=== PATIENT | female | born 2000 | race African-American/Black ===

== ENCOUNTER 2022-03-28 22:13 | Observation (INO) ==
[2022-03-28] MEDS ORDERED: KETOROLAC 30 MG/ML VIAL IV STA (22:57)
[2022-03-28] MEDS ORDERED: SODIUM CHLORIDE 0.9% 1000ML 1,000 ML IV ONE (22:57)
--- NOTE | 2022-03-28 23:03 | Emergency Department Note ---
History of Present Illness General Chief complaint: Shortness of Breath/Dyspnea Stated complaint: TROUBLE BREATHING,FATIGUE,FACE NUMB, HANDS NUMB Time Seen by Provider: 03/28/22 22:46 History of Present Illness Maximum Pain Intensity: 7 21-year-old female presents emergency department with complaint of sore throat general malaise. Patient states that she had a sore throat she felt difficulty swallowing took her inhaler felt dizzy and had tingling in her hands fell and reportedly hit her head. Patient denies any loss of consciousness. Patient denies neck pain. This event occurred at 4 PM. Patient's primary complaint is sore throat. Patient's had a prior history of strep tonsillitis. Patient denies any other complaints. There are no other mitigating or alleviating factors Home Medications Medication Instructions Recorded Confirmed Type escitalopram oxalate 10 mg tablet 10 mg PO DAILY 04/20/21 03/28/22 History albuterol sulfate 90 mcg/actuation 2 puff inhalation DIRECTED PRN 03/28/22 03/28/22 History aerosol inhaler Shortness Of Breath Or Wheezing Allergies Allergy/AdvReac Type Severity Reaction Status Date / Time prednisone AdvReac Severe Shakiness Verified 03/28/22 23:17 Past Med/Surg History Social History Smoking Status: Never smoker Preferred Language: Welsh Feels Safe at Home: Yes Immunizations: History strep throat, asthma, pseudotumor cerebri Review of Systems A total of 10 systems reviewed and were otherwise negative Constitutional: + body aches; no fever Ear, Nose, Mouth, Throat: + ear pain and + sore throat Respiratory: no cough Cardiovascular: no chest pain Neurologic: + tingling Physical Exam Vital Signs Vital Signs - 24 hr 03/28/22 22:15 03/28/22 22:36 03/28/22 22:36 Temperature 36.6 C Temperature Source Temporal Artery Scan Pulse Rate 127 H Pulse Rate [Finger] 112 H Pulse Rhythm Pulse Rhythm [Finger] Pulse Strength [Finger] Respiratory Rate 18 20 Respiratory Effort / Characteristics Respiratory Depth Respiratory Pattern Blood Pressure 125/81 Blood Pressure [Right Arm] 132/70 Blood Pressure Mean 95 Blood Pressure Mean [Right Arm] 90 Blood Pressure Position [Right Arm] Pulse Oximetry 98 99 99 Oxygen Delivery Method Room Air Room Air Room Air Sepsis Recent Fever Within 48 Hours No Sepsis New/Unexplained Change in Mental Status No Sepsis Action Taken by Nursing No Action Required 03/28/22 23:08 03/29/22 01:05 03/29/22 03:00 Temperature Temperature Source Pulse Rate 109 H 89 Pulse Rate [Finger] 107 H Pulse Rhythm Regular Pulse Rhythm [Finger] Regular Pulse Strength [Finger] Normal Respiratory Rate 20 20 18 Respiratory Effort / Characteristics Non-Labored Spontaneous Respiratory Depth Normal Respiratory Pattern Regular Blood Pressure 122/57 L Blood Pressure [Right Arm] 138/69 Blood Pressure Mean 78 Blood Pressure Mean [Right Arm] 92 Blood Pressure Position [Right Arm] Semi-fowlers Pulse Oximetry 99 98 95 Oxygen Delivery Method Room Air Room Air Room Air Sepsis Recent Fever Within 48 Hours Sepsis New/Unexplained Change in Mental Status Sepsis Action Taken by Nursing GENERAL: Patient is awake alert in no acute distress however she is hyperventilating EYES: The conjunctivae are clear. The pupils are round and reactive. EARS, NOSE, MOUTH AND THROAT: The nose is without any evidence of any deformity. Mucous membranes are moist. Tongue is midline. There is throat swelling with greenish exudate on the tonsils the uvula is midline there is no trismus NECK: The neck is nontender and supple. Nontender anterior cervical nodes palpated RESPIRATORY: Hyperventilating but not in any respiratory distress speaking in full sentences lungs are clear CARDIOVASCULAR: Tachycardic noted there no murmurs rubs or gallops normal S1 normal S2. GASTROINTESTINAL: The abdomen is soft. Abdomen is nontender. Splenomegaly BACK: No midline tenderness or or step-off noted range of motion in flexion extension as well as rotation no signs of muscle spasm noted MUSCULOSKELETAL/EXTREMITIES: There is no evidence of gross deformity full range of motion is noted in the hips and shoulders. SKIN: There is no obvious evidence of any rash. There are no petechiae, pallor or cyanosis noted. NEUROLOGIC: Patient is awake alert and oriented x3 strength is symmetric PSYCH: Anxious Course Reevaluation(s) Reevaluation #1: Patient after IV fluids and Toradol states that she feels slightly improved. Patient remains tachycardic patient has been given approximately 600 mL of saline. Patient is swallowing without any difficulty airway is intact phonating without difficulty. Time: 00:53 Reevaluation #2: Patient remained tachycardic was given IV penicillin, IV Decadron. Did have some improvement however concern for SIRS with elevated white blood cell count tachycardia and fever. Case was discussed with the [facility] hospitalist for admission Time: 03:48 Consultations Consultation #1: [facility] hospitalist for admission Time: 02:30 Administered Medications Discontinued Medications Dexamethasone Sodium Phosphate (DexamethasonePf 10 Mg/Ml Vial) 10 mg IV NOW ONE Stop: 03/29/22 00:48 Last Admin: 03/29/22 01:07 Dose: 10 mg Documented By: FANNY Sodium Chloride (Nss 1000ml) 1,000 mls @ 999 mls/hr IV .Q1H1M ONE Stop: 03/28/22 23:57 Last Infusion: 03/29/22 00:33 Dose: 0 mls/hr Documented By: Admin: 03/28/22 23:10 Dose: 999 mls/hr Documented By: FANNY Penicillin G Potassium 2 mu/ (Dextrose) 104 mls @ 100 mls/hr IV NOW STA; Protocol Stop: 03/29/22 01:33 Last Infusion: 03/29/22 03:19 Dose: 0 mls/hr Documented By: Admin: 03/29/22 01:32 Dose: 100 mls/hr Documented By: FANNY Acetaminophen (Ofirmev) 1,000 mg in 100 mls @ 400 mls/hr IV NOW STA Stop: 03/29/22 01:01 Last Infusion: 03/29/22 01:28 Dose: 0 mls/hr Documented By: Admin: 03/29/22 01:11 Dose: 400 mls/hr Documented By: FANNY Ioversol (Optiray 350 100ml) 87 ml IV ONCE ONE Stop: 03/28/22 23:54 Last Admin: 03/28/22 23:53 Dose: 87 ml Documented By: CHON Ketorolac Tromethamine (Ketorolac 30 Mg/Ml Vial) 30 mg IV NOW STA Stop: 03/28/22 22:58 Last Admin: 03/28/22 23:11 Dose: 30 mg Documented By: FANNY Medical Decision Making Medical Records Attestation: I reviewed the patient's medical records. Home Medications Current Medication List: was personally reviewed by me Laboratory Data Attestation: I reviewed the patient's lab results. Leukocytosis is present, hypokalemia is present Result diagrams: 03/28/22 22:43 03/28/22 22:43 Lab Results 03/28/22 03/28/22 03/28/22 Range/Units 22:43 22:43 22:43 WBC 27.92 H (4.8-10.8) K/ul RBC 4.29 (3.93-5.22) M/uL Hgb 11.7 L (12.0-16.0) g/dl Hct 34.8 (34.1-44.9) % MCV 81.1 (80.0-100.0) fL MCH 27.3 (25.0-34.0) pg MCHC 33.6 (32.0-36.0) g/dL RDW Std Deviation 38.2 (36.4-46.3) fL RDW Coeff of Dayna 13.2 (11.5-14.5) % Plt Count 310 (130-400) K/uL MPV 10.0 (9.4-12.3) fL Immature Gran % (Auto) 1.4 % Neut % (Auto) 86.8 % Lymph % (Auto) 3.3 % Boundary % (Auto) 8.3 % Eos % (Auto) 0.0 % Baso % (Auto) 0.2 % Neut # (Auto) 24.22 H (1.4-6.5) K/uL Lymph # (Auto) 0.93 L (1.2-3.4) K/uL Boundary # (Auto) 2.31 H (0.24-0.82) K/uL Eos # (Auto) 0.00 (0-0.50) K/uL Baso # (Auto) 0.06 (0-0.2) K/uL Immature Gran # (Auto) 0.40 H (0.00-0.02) K/uL Sodium 131 L (136-145) mmol/L Potassium 3.1 L (3.5-5.1) mmol/L Chloride 98 (98-107) mmol/L Carbon Dioxide 23 (21-32) mmol/L Anion Gap 10 (3-11) BUN 6 (6-23) mg/dl Creatinine 0.79 (0.6-1.2) mg/dl Est Cr Clr Drug Dosing 129.2 ml/min Est GFR ( Amer) 124.0 ml/min Est GFR (Non-Af Amer) 107.0 ml/min BUN/Creatinine Ratio 7.6 L (10-20) Glucose 133 H (70-99(Fasting)) mg/dl Lactate (0.4-2.0) mmol/L Calcium 9.1 (8.5-10.1) mg/dl Total Bilirubin 0.9 (0.2-1.0) mg/dl AST 36 (13-39) U/L ALT 30 (7-52) U/L Alkaline Phosphatase 48 (34-104) U/L Total Protein 7.4 (6.0-8.3) gm/dl Albumin 4.2 (3.4-5.0) gm/dl Globulin 3.2 (2.5-4.0) gm/dl Albumin/Globulin Ratio 1.3 (0.9-2) Monoscreen Negative (Negative) Group A Strep (PCR) (NotDetected) 03/28/22 03/29/22 Range/Units 23:05 00:47 WBC (4.8-10.8) K/ul RBC (3.93-5.22) M/uL Hgb (12.0-16.0) g/dl Hct (34.1-44.9) % MCV (80.0-100.0) fL MCH (25.0-34.0) pg MCHC (32.0-36.0) g/dL RDW Std Deviation (36.4-46.3) fL RDW Coeff of Dayna (11.5-14.5) % Plt Count (130-400) K/uL MPV (9.4-12.3) fL Immature Gran % (Auto) % Neut % (Auto) % Lymph % (Auto) % Boundary % (Auto) % Eos % (Auto) % Baso % (Auto) % Neut # (Auto) (1.4-6.5) K/uL Lymph # (Auto) (1.2-3.4) K/uL Boundary # (Auto) (0.24-0.82) K/uL Eos # (Auto) (0-0.50) K/uL Baso # (Auto) (0-0.2) K/uL Immature Gran # (Auto) (0.00-0.02) K/uL Sodium (136-145) mmol/L Potassium (3.5-5.1) mmol/L Chloride (98-107) mmol/L Carbon Dioxide (21-32) mmol/L Anion Gap (3-11) BUN (6-23) mg/dl Creatinine (0.6-1.2) mg/dl Est Cr Clr Drug Dosing ml/min Est GFR ( Amer) ml/min Est GFR (Non-Af Amer) ml/min BUN/Creatinine Ratio (10-20) Glucose (70-99(Fasting)) mg/dl Lactate 0.9 (0.4-2.0) mmol/L Calcium (8.5-10.1) mg/dl Total Bilirubin (0.2-1.0) mg/dl AST (13-39) U/L ALT (7-52) U/L Alkaline Phosphatase (34-104) U/L Total Protein (6.0-8.3) gm/dl Albumin (3.4-5.0) gm/dl Globulin (2.5-4.0) gm/dl Albumin/Globulin Ratio (0.9-2) Monoscreen (Negative) Group A Strep (PCR) NOT DETECTED (NotDetected) Imaging Data Radiologist's Impression: CT of the neck per radiology states diffuse nasopharyngeal edema and soft tissue swelling with bilateral tonsillar saturation and edema consistent with tonsillitis versus pharyngitis. No discrete abscess identified. Right greater than left lymphadenopathy greatest in the right jugular digastric region 1.5 x 2 cm. Multiple right greater than left posterior triangle lymph nodes. Normal- sized thyroid gland with scattered bilateral cysts/ nodules ECG Data Additional Comments: Telemetry interpreted by me sinus tachycardia rate of 127 MDM Narrative Medical decision making differential diagnosis strep pharyngitis, tonsillitis, viral syndrome, mono, early abscess. Plan is to check labs, CT neck, give IV fluids, Toradol, observe Impression & Plan Acute tonsillitis, SIRS (systemic inflammatory response syndrome) Discharge Plan Visit Data Chief Complaint: Shortness of Breath/Dyspnea Stated Complaint: TROUBLE BREATHING,FATIGUE,FACE NUMB, HANDS NUMB ED Provider: Handy Villar Discharge Problem: Acute tonsillitis, SIRS (systemic inflammatory response syndrome) Patient Disposition: Being Evaluated by Hospitalist Forms Stand Alone Forms: My [facility] [employer] Prescriptions Prescriptions: No Action escitalopram oxalate 10 mg tablet 10 mg PO DAILY albuterol sulfate 90 mcg/actuation Hfa Aerosol Inhaler 2 puff INHALATION DIRECTED PRN (Reason: Shortness Of Breath Or Wheezing) Referrals Referrals: PCP,NO [Primary Care Provider] -
[2022-03-28 23:10] LABS: Hematocrit (blood only) 34.8 % (34.1-44.9); Hemoglobin 11.7 g/dl (12.0-16.0); Mean Corpuscular Hemoglobin 27.3 pg (25.0-34.0); Mean Corpuscular Hgb Conc 33.6 g/dL (32.0-36.0); Mean Corpuscular Volume 81.1 fL (80.0-100.0); Platelet Count 310 K/uL (130-400); RDW Coefficient of Variation 13.2 % (11.5-14.5); RDW Standard Deviation 38.2 fL (36.4-46.3); Red Blood Count 4.29 M/uL (3.93-5.22); White Blood Count 27.92 K/ul (4.8-10.8)
[2022-03-28 23:31] LABS: Albumin Globulin Ratio 1.3 (0.9-2); Albumin Level 4.2 gm/dl (3.4-5.0); BUN Creatinine Ratio 7.6 (10-20); Bilirubin,Total 0.9 mg/dl (0.2-1.0); Calcium 9.1 mg/dl (8.5-10.1); Creatinine Clr Calc Pharmacy 129.2 ml/min; Globulin 3.2 gm/dl (2.5-4.0); Potassium 3.1 mmol/L (3.5-5.1); Total Protein 7.4 gm/dl (6.0-8.3)
[2022-03-28 23:33] LABS: Basophils # (auto) 0.06 K/uL (0-0.2); Basophils % (auto) 0.2 %; Immature Granulocytes % (auto) 1.4 %; Lymphocytes # (auto) 0.93 K/uL (1.2-3.4); Lymphocytes % (auto) 3.3 %; Monocytes # (auto) 2.31 K/uL (0.24-0.82); Monocytes % (auto) 8.3 %; Neutrophils # (auto) 24.22 K/uL (1.4-6.5); Neutrophils % (auto) 86.8 %
[2022-03-28] MEDS ORDERED: OPTIRAY 350 100ml IV ONE (23:53)
[2022-03-29] MEDS ORDERED: PENICILLIN G POTASSIUM 2 MU in DEXTROSE 5% 100 ML IV STA (00:31)
[2022-03-29] MEDS ORDERED: ACETAMINOPHEN 1,000 MG/100 ML VIAL IV STA (00:47)
[2022-03-29] MEDS ORDERED: dexAMETHasone**PF** 10 MG/ML VIAL IV ONE (00:47)
--- NOTE | 2022-03-29 02:29 | History & Physical Report ---
Date of Service March 29, 2022 Assessment & Plan (1) Acute tonsillitis: Plan: 21yo female with a history of strep pharyngitis, asthma, pseudotumor cerebri, and anxiety presents after a fall as well as a two-day history of sore throat, SOB, and hand/face numbness, nausea, congestion, and ear pain. Sore throat, SOB, nausea, congestion, ear pain Suspect symptoms are secondary to tonsillitis/pharyngitis CT neck: diffuse nasopharyngeal edema and soft tissue welling with bilateral tonsillar edema consistent with tonsillitis vs pharyngitis; no abscess identified; lymphadenopathy noted Group A strep PCR negative, monoscreen negative Patient received penicillin G in ED Augmentin 875-125mg bid LR @ 100mL/hr (x1 bag ordered) Flonase ordered Trend CBC, BMP Dizziness, fall, head trauma Patient fell earlier in the day when taking a puff of her albuterol inhaler CT head ordered Suspect orthostatic hypotension given poor appetite and poor PO intake Asthma: continue home regimen Anxiety: continue home lexapro FEN: regular diet, LR @ 100mL/hr (x1 bag ordered) Code status: full code DVT ppx: SCDs Dispo: med/surg History of Present Illness Primary Care Provider: NO PCP 21yo female with a history of strep pharyngitis, asthma, pseudotumor cerebri, and anxiety presents after a fall as well as a two-day history of sore throat, SOB, and hand/face numbness, nausea, congestion, and ear pain. Symptoms began around 4pm on 03/28/22.Patient tried to use her albuterol inhaler before becoming lightheaded and falling, hitting her head. Patient endorses mild forehead pain. Patient denies headache, vision changes, CP, palpitations, edema, abdominal pain, vomiting, dysuria, hematochezia, melena, back pain, or other symptoms. Denies recent illness but does endorse low appetite over the past few days. Upon arrival, vitals were notable for tachycardia (100-120s); BP not elevated, no tachypnea, patient afebrile, spO2 adequate on room air. Initial labs were notable for leukocytosis (27.9), mild hyponatremia (131), and mild hypokalemia (3.1);platelets wnl, no electrolyte abnormalities, creatinine not elevated, LFTs wnl, Tbili not elevated, mono screen negative, group A strep PCR negative. CT neck: diffuse nasopharyngeal edema and soft tissue welling with bilateral tonsillar edema consistent with tonsillitis vs pharyngitis; no abscess identified; lymphadenopathy noted In the ED, patient received an NSS 1L bolus (x1), dexamethasone 10mg IV (x1), toradol 30mg IV (x1), penicillin G, and APAP 1000mg IV (x1). Surrogate decision-maker in case of an emergency: mother Autumn Najera (cell: [phone]) Allergies Allergy/AdvReac Type Severity Reaction Status Date / Time prednisone AdvReac Severe Shakiness Verified 03/28/22 23:17 Home Medications Medication Instructions Recorded Confirmed Type escitalopram oxalate 10 mg tablet 10 mg PO DAILY 04/20/21 03/28/22 History albuterol sulfate 90 mcg/actuation 2 puff inhalation DIRECTED PRN 03/28/22 1 05/28/21 History aerosol inhaler Shortness Of Breath Or Wheezing amoxicillin 250 mg-potassium 17.5 ml PO BID 10 days #350 mL 03/29/22 Rx clavulanate 62.5 mg/5 mL oral suspension (Augmentin) Past Med/Surg History Social History Smoking Status: Never smoker Hx Alcohol Use: No Hx Substance Use: No Preferred Language: Cymro Communication Ability: Effective Advertising Rep Required: No Beliefs That Will Affect Care: None Current Living Situation: Other Current Living Situation Comment: Anushka (roommate). Feels Safe at Home: Yes Physical Exam Physical Exam: Constitutional: well-appearing, no acute distress HEENT: NCAT, MMM, oropharyngeal swelling noted without significant erythema, no exudate appreciated, no oral ulcers appreciated CV: regular rhythm, no murmur appreciated, extremities well-perfused, no LE edema Resp: CTABL, no wheezes/rales/rhonchi appreciated, no increased work of breathing GI: soft, nondistended, nontender, BS normoactive MSK: no gross deformities appreciated Skin: warm, dry, no rash appreciated Neuro: alert, oriented, no focal neurologic deficit appreciated Results & Data Results & Data ([facility]) Vital Signs (Past 12 Hours) Vital Signs Temp Pulse Pulse Resp BP BP Pulse Ox 03/29/22 01:05 107 H 20 138/69 98 03/28/22 23:08 109 H 20 99 03/28/22 22:36 112 H 20 132/70 99 03/28/22 22:36 99 03/28/22 22:15 36.6 C 127 H 18 125/81 98 O2 Del Method 03/29/22 01:05 Room Air 03/28/22 23:08 Room Air 03/28/22 22:36 Room Air 03/28/22 22:36 Room Air 03/28/22 22:15 Room Air Supervising Physician Co-Signing Physician Notes Attending addendum: I have physically seen this patient, have supervised the medical residents activities, and agree with the H&P unless as otherwise noted. Assessment and Plan: Acute exudative tonsillitis- CT neck with diffuse nasopharyngeal edema and soft tissue swelling with bilateral tonsillar edema consistent with tonsillitis pharyngitis. No abscess noted Group A strep PCR negative Monoscreen negative Status post penicillin G IV in the ED IV fluids as noted Ceftriaxone 1 g IV daily Remaining orders and notations as noted Resident Activity Tracking Resident Involvement: Resident Care Provided and Embossing Calender Operator Coverage Note Care Provided: Adult Hospital Medicine
[2022-03-29] MEDS ORDERED: ALBUTEROL HFA 8 GM INHALER INH PRN (03:17)
--- NOTE | 2022-03-29 07:46 | CT Scan Report ---
CT soft tissue neck w con HISTORY: throat pain TECHNIQUE: Multiaxial CT images of the neck were performed following the intravenous ministration of contrast and reformatted in the sagittal and coronal planes at the workstation by the radiologist. COMPARISON STUDY: None. FINDINGS: The visualized brain parenchyma and orbits are unremarkable. The pterygopalatine fossa are well-maintained. Hypertrophy and striated enhancement of the adenoid and palatine tonsils consistent with a tonsillitis. Ill-defined hypodensity within the right palatine tonsil on image 141 measuring a pproximately 1.6 x 1.5 cm. This consistent with a phlegmon/developing peritonsillar abscess. Moffat tonsillar enlargement results in moderate airway narrowing at this level. The epiglottis and prevert ebral soft tissues are normal in thickness. Subcentimeter hypodense thyroid nodules do not meet CT cr iteria for follow-up. There is an aberrant right subclavian artery noted. Mild upper cervical lymphad enopathy which is likely reactive. The major cervical vessels enhance normally. No pneumothorax. No f ractures within the visualized osseous structures. Opacified frontal sinuses with moderate mucosal th ickening within the ethmoid air cells and maxillary sinuses. The mastoid air cells are clear. Postope rative changes seen within the paranasal sinuses. There is near complete opacification of the left na vineet cavity. The parotid and submandibular glands are symmetric. IMPRESSION: 1. Hypertrophy and demonstrate enhancement of the adenoid and palatine tonsils consistent with a tons illitis. 2. Ill-defined hypodensity within the right palatine tonsil measuring 1.6 x 1.5 cm. This is consisten t with a phlegmon/developing peritonsillar abscess. 3. Moffat tonsillar enlargement results in moderate airway narrowing at this level. 4. This report was called/faxed to the emergency department following dictation. ACT 112: Negative or not required by law. Electronically signed by: Jung Waite M.D. 03/29/2022 7:45 AM
--- NOTE | 2022-03-29 07:55 | CT Scan Report ---
CT head/brain wo con CLINICAL HISTORY: syncope with head trauma Technique: Contiguous axial CT images of the head were acquired from the base of the skull to the dima yisel without intravenous contrast administration. Images were viewed in brain, [facility]. Automated dose lowering techniques and/or adjustment according to patient size were utilized for this exam. Comparison: Comparison is made to CT head 04/20/2021 Findings: The ventricles, basal cisterns, and cerebral sulci are normal. There is no acute intracranial hemorrh age or evidence of acute territorial infarction. Neither mass effect, shift of the midline structures , nor abnormal extra-axial fluid collections are shown. Sinus disease is seen in the frontal and to a lesser extent the ethmoid sinuses. There is apparent et hmoid surgery. The orbits appear normal. There are no acute fractures of the calvaria or scalp swell ing. Impression: No acute intracranial hemorrhage, no evidence of acute territorial infarction or other acute intracra nial disease process. Sinus disease is seen. ACT 112: Negative or not required by law. Electronically signed by: Zelalem Iniguez M.D. 03/29/2022 7:54 AM
[2022-03-29] MEDS ORDERED: ONDANSETRON INJ 2 MG/ML 2 ML VIAL IV PRN (08:10)
[2022-03-29] MEDS ORDERED: LACTATED RINGER'S 1,000 ML IV SCH (08:10)
[2022-03-29] MEDS ORDERED: FLUTICASONE PROPIONATE NA SPR 16 GM BTL SCH ×2 (09:00)
[2022-03-29] MEDS ORDERED: ESCITALOPRAM OXALATE 10 MG TAB PO SCH (09:00)
[2022-03-29] MEDS: ACETAMINOPHEN 500 MG TAB PO SCH ×2 (09:02→17:59)
[2022-03-29] MEDS: AMOXICILLIN/CLAVULANATE 875 MG TAB PO SCH ×2 (09:02→17:58)
[2022-03-29] MEDS ORDERED: IBUPROFEN 600 MG TAB PO PRN (09:19)
[2022-03-29 10:11] VITALS: TEMP 98.2
[2022-03-29 10:51] LABS: Hematocrit (blood only) 35.9 % (34.1-44.9); Hemoglobin 11.9 g/dl (12.0-16.0); Mean Corpuscular Hemoglobin 27.2 pg (25.0-34.0); Mean Corpuscular Hgb Conc 33.1 g/dL (32.0-36.0); Platelet Count 325 K/uL (130-400); RDW Coefficient of Variation 13.3 % (11.5-14.5); RDW Standard Deviation 39.9 fL (36.4-46.3); Red Blood Count 4.38 M/uL (3.93-5.22); White Blood Count 31.02 K/ul (4.8-10.8)
[2022-03-29 11:02] LABS: BUN Creatinine Ratio 8.8 (10-20); Calcium 9.2 mg/dl (8.5-10.1); Creatinine Clr Calc Pharmacy 150.2 ml/min; Est GFR (African American) 144.9 ml/min; Potassium 3.7 mmol/L (3.5-5.1)
[2022-03-29 15:54] VITALS: BP 118/74; PULSE 84; O2SAT 97
[2022-03-29] MEDS ORDERED: FLUARIX QUADRIVALENT 0.5 ML SYR IM ONE (16:00)
--- NOTE | 2022-03-29 16:42 | Electrocardiogram Report ---
Test Reason : Blood Pressure : / mmHG Vent. Rate : 115 BPM Atrial Rate : 115 BPM P-R Int : 164 ms QRS Dur : 074 ms QT Int : 308 ms P-R-T Axes : 055 025 245 degrees QTc Int : 426 ms Sinus tachycardia T wave abnormality, consider inferolateral ischemia Abnormal ECG No previous ECGs available Confirmed by Carlos Amin ([id number]) on 03/29/2022 4:42:33 PM Referred By: REFERRED SELF Confirmed By:Carlos Amin
--- NOTE | 2022-03-29 17:32 | Discharge Summary ---
Date of Service March 29, 2022 Admission HPI Per Admitting Provider 21yo female with a history of strep pharyngitis, asthma, pseudotumor cerebri, and anxiety presents after a fall as well as a two-day history of sore throat, SOB, and hand/face numbness, nausea, congestion, and ear pain. Symptoms began around 4pm on 03/28/22.Patient tried to use her albuterol inhaler before becoming lightheaded and falling, hitting her head. Patient endorses mild forehead pain. Patient denies headache, vision changes, CP, palpitations, edema, abdominal pain, vomiting, dysuria, hematochezia, melena, back pain, or other symptoms. Denies recent illness but does endorse low appetite over the past few days. Upon arrival, vitals were notable for tachycardia (100-120s); BP not elevated, no tachypnea, patient afebrile, spO2 adequate on room air. Initial labs were notable for leukocytosis (27.9), mild hyponatremia (131), and mild hypokalemia (3.1);platelets wnl, no electrolyte abnormalities, creatinine not elevated, LFTs wnl, Tbili not elevated, mono screen negative, group A strep PCR negative. CT neck: diffuse nasopharyngeal edema and soft tissue welling with bilateral tonsillar edema consistent with tonsillitis vs pharyngitis; no abscess identified; lymphadenopathy noted In the ED, patient received an NSS 1L bolus (x1), dexamethasone 10mg IV (x1), toradol 30mg IV (x1), penicillin G, and APAP 1000mg IV (x1). Surrogate decision-maker in case of an emergency: mother Autumn Najera (cell: [phone]) Principal Diagnosis acute pharyngitis with possible peritonsillar abscess Discharge Exam Constitutional + ill appearing Eyes + anicteric sclerae ENMT Mouth: + oral mucosal abnormality (Erythematous posterior pharynx, enlarged tonsils bilaterally right greater ) Mallampati Class: IV Throat: uvula midline Neck trachea midline, no thyromegaly normal visual inspection Respiratory normal respiratory effort, lungs clear to auscultation Cardiovascular RRR, no murmur, no edema Gastrointestinal (Abdomen) normal bowel sounds, soft, nontender, no hepatosplenomegaly Musculoskeletal Head/Neck/Chest: normocephalic and head atraumatic Skin no rashes, warm and dry Neurologic moves all extremities Psychiatric A+Ox3, euthymic affect Lymphatic no cervical or axillary lymphadenopathy Discharge Data Allergies Allergy/AdvReac Type Severity Reaction Status Date / Time prednisone AdvReac Severe Shakiness Verified 03/28/22 23:17 Consultations 03/29/22 03:38 ED Decision to Admit Stat 03/29/22 16:23 Burn CD for patient Routine Ordered Studies 03/28/22 22:57 CT soft tissue neck w con Urgent 03/29/22 03:38 CT head/brain wo con Urgent Hospital Course (1) Acute tonsillitis: 21yo female with a history of strep pharyngitis, asthma, pseudotumor cerebri, and anxiety presents after a fall as well as a two-day history of sore throat, SOB, and hand/face numbness, nausea, congestion, and ear pain. Sore throat, SOB, nausea, congestion, ear pain Suspect symptoms are secondary to tonsillitis/pharyngitis, With possible peritonsillar abscess per CT CT neck: diffuse nasopharyngeal edema and soft tissue welling with bilateral tonsillar edema consistent with tonsillitis vs pharyngitis; Radiology reported possible abscess Group A strep PCR negative, monoscreen negative Patient to follow-up with [facility] by the end of the week to discuss management about possible peritonsillar abscess Patient received penicillin G in ED Augmentin 875-125mg bid Until follow-up with ENT LR @ 100mL/hr (x1 bag ordered) Flonase ordered Trend CBC, BMP-->Significant white count of 31 Dizziness, fall, head trauma Patient fell earlier in the day when taking a puff of her albuterol inhaler CT head ordered, negative head CT Suspect orthostatic hypotension given poor appetite and poor PO intake Asthma: continue home regimen Anxiety: continue home lexapro FEN: regular diet Code status: full code DVT ppx: SCDs Dispo: d/c home with f/u with [facility] Total Time Total Time Spent Total Time Spent (In Minutes): <30 Discharge Plan Discharge Items Patient Disposition: Home - Self-Care Reason For Visit: SORE THROAT,SOB Discharge Diagnosis: Acute pharyngitis, possible peritonsillar abscess Activity: Per Instructions section Non-emergency contact: Primary Care Provider Call non-emergency contact if: you have any medication questions and your temperature is above 101.5 Follow-up/Referrals: Gerber Squires DO [Resident] - PCP,NO [Primary Care Provider] - Diet: Regular Addtl Attending Provider Instructions: You were seen in the hospital for concern of experiencing a fall at home as well as experiencing a 2-day history of sore throat, shortness of breath and nausea/congestion. While you were here you were evaluated by emergency department who performed imaging of your head and neck which did reveal a mass in the tonsil that may be consistent with a peritonsillar abscess. Typically we would consult to research manufacturing operator to evaluate you, however, we did not have one available to come see you. Because your clinical status improved after receiving antibiotics and intravenous fluid, you are given the option of either going home and having close follow-up with an ear nose throat specialist or being shipped to a different facility that has ear nose and throat available for which you decided on the prior. We do believe that it is safe for her to be discharged home with close follow-up as long as she is on antibiotics in the meantime. For this reason a liquid form of Augmentin will be sent to the pharmacy for which she is to take twice a day until follow-up with ear nose and throat. A copy of your CT results will be sent with you via CD to take to the ENT doctor. It seems that your research manufacturing operator that you already see is aware of your situation and will likely get you in by the end of the week. If this becomes unfruitful, be sure to call us back and we will get you in with a specialist ERNIE. Please return to the emergency department if you begin experiencing shortness of breath, profuse vomiting, inability to eat or drink, or general unwellness. For your pain, please take Tylenol 1000 mg 3 times a day and ibuprofen 600 mg 3 times a day alternating the 2 medications. Please do not exceed 4000 mg of Tylenol in 24 hours or 2400 mg of ibuprofen in 24 hours. Is been a pleasure to be a part of your care and we wish you the best in both your health and your recovery. Pending Studies at Discharge: No Stand-Alone Forms: [facility], Work/School Release, Smoking Cessa tion Medications and DC Order Prescriptions: New amoxicillin-pot clavulanate [Augmentin] 250-62.5 mg/5 mL suspension for reconstitution 17.5 ml PO BID 10 Days Qty: 350 0RF Continued escitalopram oxalate 10 mg tablet 10 mg PO DAILY albuterol sulfate 90 mcg/actuation Hfa Aerosol Inhaler 2 puff INHALATION DIRECTED PRN (Reason: Shortness Of Breath Or Wheezing) Discharge Orders: Discharge Order (Routine); Ordered 03/29/22 Ordered By: Gerber Navarro/Other Patient Handouts: Peritonsillar Abscess Admission Data Admit Date/Time: 03/29/22 03:23 Attending Provider: Carlos Rodriguez Admit Provider: Carlos Rodriguez Primary Care Provider: PCP,NO Other Providers: Carlos Rodriguez Other Interventions: Discharge Summary Assessment (RN) Last Done: 03/29/22 18:23 Supervising Physician Co-Signing Physician Notes I personally examined the patient and verified all mchugh points of history and exam, discussed case, and agree with decision making with Dr Squires Feeling okay. Able to tolerate p.o., feels good enough to go home. Discussed the concern about a possible developing abscessalthough not clear, discussed the need for ENT evaluation. They have an ENT that she is followed by regularly at homeand would definitely prefer to see the familiar surgeonwe discussed risk/benefit, as well as possible "red flags" and patient was extremely well versed, as was her mom (an oncology nurse) and quite comfortable with a plan of home on p.o. antibiotics following up with her ENT in short orderwe discussed that it would be most appropriate by the end of the week, which they felt would not be a problemparticularly given that the mom was already in contact with the ENT office earlier today. Vitals noted, in general she is awake and alert pleasant no distress. No respiratory distress no stridor. Pharynx shows right-sided tonsillar exudate bilateral tonsils probably 3+, but she does have a patent airway there is no gross asymmetry no uvular deviation, no difficulty with speaking no conversational dyspnea. Respiratory shows a no distress at all no accessory muscle use Pharyngitisconcern on developing peritonsillar abscessstable on antibiotics, she would prefer to follow-up with her ENT at home who follows her regularly, t his seems reasonable given that it will be able to be done in short order. Patient and mom quite aware of red flags and will seek care immediately should she have respiratory distress, difficulty swallowing, persistent fevers/etc. In regards to her leukocytosisdiscussed this is something we do see quite frequently in similar situations, but definitely should be tracked to normal. Patient and mom both comfortable with this as well Safe/stable for home
--- NOTE | 2022-03-29 18:12 | Billing Data ---
Date of Service March 29, 2022 Coding Level of Care Code 74560 OBS Care - Discharge
--- NOTE | 2022-03-29 21:04 | Billing Data ---
Date of Service March 29, 2022 Coding Level of Care Code INT OBSERVATION CARE 70M LVL 3
== END 2022-03-29 18:54 | disposition home or self-care (01) ==
LOC: 3W 22:13 → ED 22:13 → 3W 03-29 07:48